=== PATIENT | female | born 1945 | race Caucasian/White ===

== ENCOUNTER 2024-08-08 11:26 | Inpatient (IN) | payer OTHER ==
--- OUTSIDE RECORDS SUMMARY | 2024-08-08 11:32 | XMS REPORT | Clinical Summary ---
Author Name Unknown Organization [facility] Address [address] [place] [address] Care Team Providers Care Crtts Name Role Phone Adeel Hogue MD Unavailable [phone] Eliazar Monroy MD Primary Care Provider Ninfa Mitchell DPM Unavailable William Oseguera MD Unavailable [phone] Maggie Ramos GRAPHIC ART DESIGNER Unavailable Kayce Albert MD Unavailable Augustin Oleary MD Unavailable Joshua Almanzar MD Unavailable Allergies Active Allergy Reactions Criticality Noted Date Comments Codeine Hcl GI Intolerance 04/19/2016 Medications * This document contains information received from the source organization and may not represent a complete record from that organization. lisinopril-hydr ochlorothiazide (PRINZIDE,ZESTO RETIC) 20-25 mg per tablet Take 1 tablet by mouth daily. Active levothyroxine (SYNTHROID, LEVOTHROID) 137 mcg tablet Take 1 tablet (137 mcg) by mouth daily. Active isosorbide mononitrate (IMDUR) 30 mg 24 hr tablet Take 1 tablet (30 mg) by mouth daily. Active multivitamin capsule Take 1 capsule by mouth daily. Active famotidine (PEPCID) 20 mg tablet Take 1 tablet (20 mg) by mouth twice daily. 12/28/19 22 Active rOPINIRole (REQUIP) 2 mg tablet Take 1 tablet (2 mg) by mouth nightly as needed. 10/15/19 23 Active rosuvastatin (Crestor) 10 mg tabletIndicatio ns:Dyslipidemia ,Coronary arteriosclerosi s, not otherwise specified Take 1 tablet (10 mg) by mouth at bedtime. 30 tablet 3 12/31/19 23 Active metoprolol tartrate (LOPRESSOR) 50 mg tabletIndicatio ns:Hypertension Take 0.5 tablets (25 mg) by mouth twice daily. 04/26/20 24 Active aspirin 81 mg EC tabletIndicatio ns:Coronary arteriosclerosi s, not otherwise specified Take 1 tablet (81 mg) by mouth daily. 04/26/20 24 Active gabapentin (NEURONTIN) 800 mg tabletIndicatio ns:Chronic pain Take 1 tablet (800 mg) by mouth 3 (three) times a day. 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 90 tablet 2 09/01/19 17 024 Discontinued baclofen (LIORESAL) 10 mg tabletIndicatio ns:Chronic pain TAKE 1 TABLET BY MOUTH EVERY 12 HOURS 180 tablet 08/02/19 20 024 Discontinued( erapy completed) xyloxylin oral suspension (AMB-CMPD)Indic ations:Diffuse large B-cell lymphoma, not otherwise specified Swish and spit 10 mL every 6 (six) hours as needed for mouth pain. 480 mL 2 10/01/19 22 024 Discontinued(Th erapy completed) gabapentin (NEURONTIN) 800 mg tabletIndicatio ns:Chronic pain Take 1 tablet (800 mg) by mouth 3 (three) times a day. 90 tablet 5 05/12/20 23 024 Discontinued(Re order) omeprazole (PriLOSEC) 40 MG capsule Take 1 capsule (40 mg) by mouth. 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 60 tablet 6 10/24/19 24 024 Discontinued gabapentin (NEURONTIN) 800 mg tabletIndicatio ns:Chronic pain Take 1 tablet (800 mg) by mouth 3 (three) times a day. 90 tablet 5 11/10/19 24 025 Discontinued(Re order) Active Problems Problem Noted Date Diagnosed Date Preoperative cardiovascular examination 10/24/19 Coronary arteriosclerosis 04/05/2023 Assessment & Plan (04/26/2024 1:14 PM BLASTING ENTRYMAN): Patient has history of remote MS and underwent PCI in 2003 (details unknown). She had an echocardiogram 12/30/2022 that revealed normal LVEF 55% with normal RV size/function. The echocardiogram was previously reviewed with and was felt she had a very focal area of thinning and hypokinesis in the mid inferoseptum. The thinning indicates chronicity. The patient denies chest pain or CHF symptomatology. She remains active and performs her ADLs independently. Admits she was not using Crestor for the past few months because she was having some muscle spasms that go away when she drinks pickle juice (states she is scheduled for routine blood work with her local PCP in about 2 weeks).. She has not been using aspirin 81 mg daily because she takes ibuprofen regularly. Recommend aspirin 81 mg daily. Advised patient to not use ibuprofen on a regular basis. Okay to use Tylenol as directed on the label for muscle aches. Will resume Crestor 10 mg daily. Plan to check lipids and LFTs in about 8-12 weeks (patient will go to local lab) and I will call her with the results. Otherwise, plan to follow-up in the clinic in 1 year with previsit lipid panel and CMP. Assessment & Plan (04/10/2023 10:07 AM BLASTING ENTRYMAN): History of MS s/p PCI in 2003. Echo reports LVEF of 55% with WMA. Discussed Echo with Dr. Oleary regarding WMA. Her LVEF is indeed preserved but she has a very focal area of thinning and hypokinesis in the mid inferoseptum. 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 However, the area of thinning does indicate chronicity. Will continue current cardiac meds. She can be considered low risk for low risk procedure as she remains asymptomatic, has good functional capacity, and is on guideline therapy. However, if she needs to go for a moderate or higher risk surgery, recommend NMST for further evaluation. Dyslipidemia 04/05/2023 Assessment & Plan (04/26/2024 1:21 PM BLASTING ENTRYMAN): She had a lipid panel 11/24/2023 which showed TC 200, TRG 263, HDL 37 and LDL 110. He has history of prior MS with PCI in 2003. Has not been taking Crestor in the past few months as she thought it was contributing to her muscle spasms, however, continues to have muscle spasms despite being off of statin therapy. Goal LDL should be <70 Patient is agreeable to restart Crestor 10 mg daily. Will plan to check lipids and LFTs in about 8-12 weeks. Otherwise, we will plan to follow-up in 1 year with a previsit lipid panel. Assessment & Plan (04/07/2023 5:06 PM BLASTING ENTRYMAN): Latest Reference Range & Units 01/27/23 09:55 Chol <=199 mg/dL 124 Trig <=149 mg/dL 165 (H) HDL Cholesterol >=40 mg/dL 44 LDL <=100 mg/dL 47 Very Low Density Lipoprotein mg/dL 33 (H): Data is abnormally high Controlled on current medication of Crestor 10mg daily. Continue same. 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 BP was 139/70 in our clinic today. Patient states she does not check her BP at home on a regular basis. Patient was encouraged to monitor her daily BP and notify our clinic or her local PCP if readings are consistently >130/80 Patient will continue with Lisinopril-HCTZ 20-12.5 mg daily, Imdur 30 mg daily, and Metoprolol tartrate 25 mg BID. Patient states she is scheduled to have blood work in about 2 weeks through her PCP. I asked her to send us a copy of the results Patient states her local PCP has been monitoring her BP and she has an upcoming appointment to see him in May 2024. Will defer ongoing BP management to her local PCP. Assessment & Plan (04/05/2023 1:18 PM BLASTING ENTRYMAN): Controlled on current medications of lopressor 50mg BID, lisinopril-HCTZ 20-25mg daily. Continue current medications. 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 Encounters Date Type Department Care Team Description 07/01/2024 Telephone Cancer Prevention Center ([facility]) [address] [facility], [address] [place] [address] Elisha Campuzano RN 05/23/2024 9:15 AM BLASTING ENTRYMAN - 05/23/2024 11:59 PM BLASTING ENTRYMAN Hospital Encounter Pain Management Center [facility] [facility], 4th [place] [address] Ivelisse Lilly APRN Sensory neuropathy (Primary Dx); Chronic pain Discharge Disposition: Home 04/26/2024 1:20 PM BLASTING ENTRYMAN Follow-Up Cardiopulmonary Center [address] [facility], 6th [place] [address] Augustin Oleary MD Bailey, Katie, APRN Coronary arteriosclerosis, not otherwise specified (Primary Dx); Hypertension; Dyslipidemia 04/26/2024 Travel 11/24/2023 2:30 PM CDT Follow-Up [place] 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; Spasm; History of antineoplastic chemotherapy 11/24/2023 12:45 PM CDT Ancillary Procedure [facility] [address] [facility], 2nd [place] [address] Maggie Ramos APRN 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 11/24/2023 11:00 AM CDT Ancillary Procedure X-Ray Outpatient Center [address] [place] [address], 7th [place] [address] Maggie Ramos APRN 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 11/24/2023 10:20 AM CDT - 11/24/2023 11:59 PM CDT Hospital Encounter Nuclear Medicine [address] [place] [address], 6th Floor, [place] [address] Maggie Ramos APRN 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 Discharge Disposition: Home 11/24/2023 9:38 AM CDT - 11/24/2023 10:19 AM CDT Hospital Encounter Diagnostic Laboratory Center [address] [place] [address] Maggie Ramos APRN 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 Discharge Disposition: Home 11/24/2023 Travel 11/10/2023 1:20 PM CDT - 11/10/2023 11:59 PM CDT Hospital Encounter Pain Management Center [address] [place] [address], 4th [place] [address] Joshua Almanzar MD Chronic pain (Primary Dx) Discharge Disposition: Home 10/25/2023 Documentation Cardiopulmonary Center [address] [place] [address] [facility], 6th [place] [address] Estee Jackson RN 10/24/2023 9:30 AM CDT Telemedicine Cardiopulmonary Center [address] [place] [address] [facility], 6th [place] [address] Nini Larson PA-C Hypertension (Primary Dx); 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; Sinus bradycardia; Coronary arteriosclerosis, not otherwise specified; Preoperative cardiovascular examination 10/10/2023 10:00 AM CDT Follow-Up Cardiopulmonary Center [address] [place] [address], 6th [place] [address] Nini Larson PA-C Hypertension (Primary Dx); Dyslipidemia 10/10/2023 Travel after 08/09/2023 Immunizations Name Administration Dates Next Due Moderna SARS-CoV-2 Monovalen t Booster Vaccination (50 mcg/0.25 mL) 08/27/2021,03/16/2021 Moderna SARS-CoV-2 Vaccination 07/11/2020,2020 Surgical History Surgery Date Site/Laterality Comments CHOLECYSTECTOMY 05/22/1969 - 05/21/1970 CORONARY ARTERY BYPASS GRAFT 05/22/2003 - 05/21/2004 APPENDECTOMY 05/22/1969 - 05/21/1970 TONSILLECTOMY 05/22/1952 - 05/21/1953 HYSTERECTOMY 05/22/1986 - 05/21/1987 UPPER GASTROINTESTINAL ENDOSCOPY COLONOSCOPY 05/22/2019 - 05/21/2020 CATARACT EXTRACTION, BILATERAL 07/20/2021 - 08/19/2021 Medical History Medical History Date Comments Hypertension Cardiac arrest 05/12/04 History of placement of sten t for coronary artery disease 05/13/04 stent Hyperlipidemia Nodule in breast 03/2016 removed - per p t module was in right neck and was removed by ENT Gastric reflux Diverticulitis Polyp Abnormal uterine bleeding un related to menstrual cycle 1985 hysterectomy Arthritis Disorder of thyroid gland Malignant lymphoma 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 Urinary tract infection 08/23/2016 Gastroesophageal reflux disease Family History Medical History Relation Name Comments -Gastrointestinal (Esophagus , Liver, Bile Duct, Stomach, Pancreas, Colon, Rectum, Anus Father Diabetes Maternal Grandmother Hypertension Maternal Grandmother Heart failure Mother -Thoracic or Lung Sister Relation Name Status Comments Father Maternal Grandmother Mother Sister Social History Tobacco Use Types Packs/Day Years Used Date Smoking Tobacco: Former Cigarettes 1 40 1 964 - 2004 Passive Smoke Exposure: Past Smokeless Tobacco: Never Tobacco Cessation:Counseling Given: Not Answered Alcohol Use Standard Drinks/Week Comments No 0 (1 standard drink = 0.6 oz pur e alcohol) Comments No Sex and Gender Information Value Date Recorded Sex Assigned at Not on file Legal Sex Female 2:12 PM BLASTING ENTRYMAN Gender Identity Not on file Sexual Orientation Not on file Obstetrics History Para Term AB IAB SAB Ectopic Multiple Livin g Live Births 2 2 2 2 Date Outcome GA Total Labor Labor/2nd/3rd Weight Sex Type Anes PTL Audra A1 A5 Name Clin Term Term Last Filed Vital Signs Vital Sign Reading Time Taken Comments Blood Pressure 139/70 04/26/2024 12:34 PM BLASTING ENTRYMAN Pulse 70 04/26/2024 12:34 PM BLASTING ENTRYMAN Temperature 36.7 °C (98.1 °F) 04/26/2024 12:[address] Respiratory Rate 18 04/26/2024 12:34 PM BLASTING ENTRYMAN Oxygen Saturation 96% 04/26/2024 12:34 PM BLASTING ENTRYMAN Inhaled Oxygen Concentration - - Weight 85.9 kg (189 lb 4.2 oz) 04/26/2024 12:34 PM BLASTING ENTRYMAN Height 156 cm (5' 1.42") 11/24/2023 10:31 AM CDT Body Mass Index 35.28 11/24/2023 10:31 AM CDT Plan of Treatment Upcoming Encounters Date Type Department Care Team (Late st Contact Info) Description 11/29/2024 9:20 AM CDT Appointment Pain Management Center [address] [facility], 4th [place] [address] Ivelisse Lilly APRN [address] [place] [address] [email or web address] 11/29/2024 10:45 AM CDT Appointment Diagnostic Laboratory Center [address] [place] [address] Liliane Chávez, GRAPHIC ART DESIGNER [address] [place] [address] [email or web address] 11/29/[email or web address] 12:00 PM CDT Ancillary Procedure Diagnostic Center [address] [facility], 2nd Floor [place] [address] Liliane Chávez, GRAPHIC ART DESIGNER [address] [place] [address] [email or web address] 11/29/[email or web address] 1:20 PM CDT Appointment Breast Imaging [facility], 5th [place] [address] Liliane Chávez, GRAPHIC ART DESIGNER [address] [place] [address] [email or web address] 11/[email or web address]/2024 2:00 PM CDT Follow-Up Cancer Prevention Center - Survivorship, Lymphoma [address] [place] [address], 8th [place] [address] Liliane Chávez, GRAPHIC ART DESIGNER [address] [place] [address] [email or web address] 05/02/2025 8:15 AM BLASTING ENTRYMAN Appointment Diagnostic Laboratory Center [address] [place] [address] Afua Vallejo, GRAPHIC ART DESIGNER [address] [place] [address] [email or web address] 05/02/2025 9:00 AM BLASTING ENTRYMAN Follow-Up Cardiopulmonary Center [address] [place] [address], 6th [place] [address] Augustin Oleary MD [address] [place] [address] [email or web address] Maintenance Due Date Last Done Comments Pneumococcal Vaccine: 50+ Ye ars (1 of 2 - PCV) 1964 COVID-19 Vaccine (3 - Modern a risk series) 09/24/2021 08/27/2021, 03/16/2021, 07/11/2020, Additional history exists Influenza Vaccine (#1) 2024 Medical Devices Implanted Type Area Automation Technician Device Identifier Shelf Expiration Date Model / Serial / Lot Stent Stent Description:04/2004 Procedures Procedure Name Priority Date/Time Associated Diagnosis Comments MAMMO DIGITAL SCREENING BILATERAL W PAUL Routine 11/24/2023 12:00 PM CDT 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 DEXA BONE MINERAL DENSITY BOTH HIPS AND SPINE Routine 11/24/2023 11:07 AM CDT 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 XR CHEST 2 VW Routine 11/24/2023 10:13 AM CDT 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 .CBC Routine 11/24/2023 9:45 AM CDT 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 LIPID PANEL Routine 11/24/2023 9:45 AM CDT 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 HEMOGLOBIN A1C Routine 11/24/2023 9:45 AM CDT 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 ELECTROLYTE PANEL Routine 11/24/2023 9:4 5 AM CDT 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 FREE T3 Routine 11/24/2023 9:45 AM CDT 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 MAGNESIUM LEVEL Routine 11/24/2023 9:45 AM CDT 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 CALCIUM LEVEL Routine 11/24/2023 9:45 AM CDT 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 GLUCOSE, RANDOM Routine 11/24/2023 9:45 AM CDT 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 CREATININE Routine 11/24/2023 9:45 AM CDT 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 BLOOD UREA NITROGEN Routine 11/24/2023 9 :45 AM CDT 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 URIC ACID Routine 11/24/2023 9:45 AM CDT 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 FRACTIONATED BILIRUBIN Routine 9:45 AM CDT 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 LACTATE DEHYDROGENASE Routine 11/24/2023 9:45 AM CDT 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 ALKALINE PHOSPHATASE Routine 11/24/2023 9:45 AM CDT 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 ALANINE AMINOTRANSFERASE Routine 9:45 AM CDT 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 ASPARTATE AMINOTRANSFERASE Routine 11/24/2023 9:45 AM CDT 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 PHOSPHORUS LEVEL Routine 11/24/2023 9:45 AM CDT 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 ALBUMIN LEVEL Routine 11/24/2023 9:45 AM CDT 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 TOTAL PROTEIN Routine 11/24/2023 9:45 AM CDT 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 VITAMIN D 25 HYDROXY LEVEL Routine 11/24/2023 9:45 AM CDT 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 FREE THYROXINE Routine 11/24/2023 9:45 AM CDT 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 Follow-up mammogram in 1 year is recommended. I personally reviewed these image(s) along with the resident's/fellow's interpretations, certify that if a procedure was performed I was physically present, and agree with the final report. BI-RADS Category 2: Benign Finding(s) Narrative 11/24/2023 3:37 PM CDT CLINICAL INDICATION: Patient is a 78 year old female and is seen for screening. MAMMO DIGITAL SCREENING BILATERAL W PAUL Digital Mammogram evaluated with Computer Aided Detection (CAD). COMPARISON: The present examination has been compared to prior imaging studies performed at an outside location on 05/06/2011, and at [facility] on 04/20/2016. FINDINGS: The breasts are almost entirely fatty. 1: There are eggshell or rim calcifications in both breasts. 2: There are large rodlike calcifications in both breasts. Tomosynthesis performed in CC and MLO projections. Procedure Note Sumit Bansal MD - 11/24/2023 CLINICAL INDICATION: Patient is a 78 year old female and is seen for screening. MAMMO DIGITAL SCREENING BILATERAL W APUL Digital Mammogram evaluated with Computer Aided Detection (CAD). COMPARISON: The present examination has been compared to prior imaging studiesperformed at an outside location on 05/06/2011, and at [facility] on 04/20/2016. FINDINGS: The breasts are almost entirely fatty. 1: There are eggshell or rim calcifications in both breasts. 2: There are large rodlike calcifications in both breasts. Tomosynthesis performed in CC and MLO projections. IMPRESSION: There is no mammographic evidence of malignancy. Follow-up mammogram in 1 year is recommended. I personally reviewed these image(s) along with the resident's/fellow's interpretations, certify that if a procedure was performed I wasphysically present, and agree with the final report. BI-RADS Category 2: Benign Finding(s) Maggie Ramos APRN IMG MAMMOGRAPHY ORDER PHILIPPE Final Result * NM Bone Mineral Density Both Hips and Spine (11/24/2023 11:07 AM CDT) Anatomical Region Laterality Modality Spine Nuclear Medicine 11/24/2023 11:1 1 AM CDT Impressions 11/24/2023 11:12 AM CDT Normal bone mineral density. I personally reviewed these image(s) along with the resident's/fellow's interpretations, certify that if a procedure was performed I was physically present, and agree with the final report. Narrative 11/24/2023 11:12 AM CDT FULL RESULT: Examination: Bone Mineral Density (DXA), 11/24/2023 Clinical History: 78-year-old postmenopausal female with lymphoma. Indication: Assessment of bone mineral density.. Comparison: None. Technique: Bone mineral density was obtained using Hologic dual-energy X-ray absorptiometry. Findings: The findings are provided in the below table(s). Bone Density: Region Exam Date BMD T- Z- g/cm2 Score Score AP Spine (L1-L4) 11/24/2023 1.750 6.4 8.9 Femoral Neck (Left) 11/24/2023 1.089 2.2 4.3 Total Hip (Left) 11/24/2023 1.260 2.6 4.5 Femoral Neck (Right) 11/24/2023 1.013 1.5 3.7 Total Hip (Right) 11/24/2023 1.149 1.7 3.6 For postmenopausal women and men age 50 and over, the World Health Organization criteria for BMD interpretation classify patients as: Normal (T-score at or above -1.0), Osteopenia (T-score between -1.0 and -2.5), or Osteoporosis (T-score at or below -2.5). Procedure Note Bia Barajas MD - 11/24/2023 FULL RESULT: Examination: Bone Mineral Density (DXA), 11/24/2023 Clinical History: 78-year-old postmenopausal female with lymphoma. Indication: Assessment of bone mineral density.. Comparison: None. Technique: Bone mineral density was obtained using Hologic ectz-[id number]-zle absorptiometry. Findings: The findings are provided in the below table(s). Bone Density: Region Exam Date BMD T- Z- g/cm2 Score Score AP Spine (L1-L4) 11/24/2023 1.750 6.4 8.9 Femoral Neck (Left) 11/24/2023 1.089 2.2 4.3 Total Hip (Left) 11/24/2023 1.260 2.6 4.5 Femoral Neck (Right) 11/24/2023 1.013 1.5 3.7 Total Hip (Right) 11/24/2023 1.149 1.7 3.6 For postmenopausal women and men age 50 and over, the World Health Organization criteria for BMD interpretation classify patients as: Normal (T-score at or above -1.0), Osteopenia (T-score between -1.0 and -2.5), or Osteoporosis (T-score at or below -2.5). IMPRESSION: Normal bone mineral density. I personally reviewed these image(s) along with the resident's/fellow'sinterpretations, certify that if a procedure was performed I wasphysically present, and agree with the final report. us Maggie Ramos APRN [facility] – [facility] DXA ORDERABLES Fi nal Result * X-ray Chest 2 Views (11/24/2023 10:13 AM CDT) Anatomical Region Laterality Modality Chest Digital Radiogra phy 11/24/2023 10:2 0 AM CDT Impressions 11/24/2023 10:22 AM CDT No acute cardiopulmonary disease, or radiographic evidence of intrathoracic lymphoma. ACTIONABLE ITEMS/RECOMMENDATIONS: None. Narrative 11/24/2023 10:22 AM CDT FULL RESULT: Examination: XR Chest, 2 Views 11/24/2023 10:13 AM. Clinical History: Lymphoma. Indication: Restaging. Comparison: PA and lateral chest, 07/14/2023. Technique: Posteroanterior, lateral and dual-energy chest radiographs, 11/24/2023. Findings: The lungs are clear. No pleural effusion is present. The heart is normal in size with a mildly tortuous aorta. The left hemidiaphragm remains mildly elevated. Degenerative changes are noted in the thoracic spine. Procedure Note Kam White MD - 11/24/2023 FULL RESULT: Examination: XR Chest, 2 Views 11/24/2023 10:13 AM. Clinical History: Lymphoma. Indication: Restaging. Comparison: PA and lateral chest, 07/14/2023. Technique: Posteroanterior, lateral and dual-energy chest radiographs,11/24/2023. Findings: The lungs are clear. No pleural effusion is present. The heart is normalin size with a mildly tortuous aorta. The left hemidiaphragm remainsmildly elevated. Degenerative changes are noted in the thoracic spine. IMPRESSION: No acute cardiopulmonary disease, or radiographic evidence ofintrathoracic lymphoma. ACTIONABLE ITEMS/RECOMMENDATIONS: None. us Maggie Ramos APRN IMG DIAGNOSTIC IMAGIN G ORDERABLES Final Result * Glucose, Random (11/24/2023 9:45 AM CDT) Glucose Random 105 70 - 199 mg/dL 11/24/2023 10:30 AM CDT [facility] Blood Peripheral blood specimen / Unknown Venipuncture / Unknown 11/24/2023 9:45 AM CDT 11/24/2023 9:54 AM CDT Narrative [facility] - 11/24/2023 10:30 AM CDT Effective 12/16/15, the glucose reference intervals have been updated based on [employer] guidelines (Standards of Medical Care in Diabetes 2016. Diabetes Care 2016; 39: S13-S22). Fasting blood glucose: Normal: 70-99 mg/dL Impaired fasting glucose (increased risk for diabetes or pre-diabetes): 100-125 mg/dL Diabetes mellitus: >/=126 mg/dL Random blood glucose: Normal: 70-199 mg/dL Note: Random glucose >100 mg/dL is associated with increased risk for diabetes Maggie Ramos APRN LAB BLOOD ORDERABLES Final Result [facility] [address] [place] [address] * (ABNORMAL) .CBC (11/24/2023 9:45 AM T) [facility] White Blood Cell 4.7 4.1 - 10.5 K/uL 11/24/2023 10:01 AM [facility] Red Blood Cell 4.11 3.99 - 5.46 M/uL 11/24/2023 10:01 AM [facility] Hemoglobin 12.5 12.2 - 15.3 g/dL 11/24/2023 10:01 AM [facility] Hematocrit 37.7 36.4 - 46.8 % 11/24/2023 10:01 AM [facility] Mean Cell Volume 92 82 - 99 fL 11/24/2023 10:01 AM [facility] Mean Cell Hemoglobin 30.4 26.6 - 33.2 pg 11/24/2023 10:01 AM [facility] Mean Cell Hemoglobin Concentration 33.2 31.1 - 35.2 g/dL 11/24/2023 10:01 AM [facility] RDW-SD 42.3 37.5 - 49.7 fL 11/24/2023 10:01 AM [facility] Red Cell Diameter Width 12.8 11.6 - 15.5 % 11/24/2023 10:01 AM [facility] Platelet 153(L) 160 - 397 K/uL 11/24/2023 10:01 AM [facility] Mean Platelet Volume 11.4 9.1 - 12.6 fL 11/24/2023 10:01 AM [facility] INRBC 0.0 0.0 - 0.1 /100 WBC 11/24/2023 10:01 AM [facility] Comment: The INRBC (instrument NRBC) value reflects the enumeration of nucleated red blood cells contained in a 200uL sample of whole blood analyzed by the instrument. This value may differ from the NRBC value reported in a manual differential, which is based on a 100 cell differential. Neutrophil % 42.8(L) 43.2 - 72.7 % 11/24/2023 10:01 AM [facility] Lymphocyte % 40.6 16.8 - 46.2 % 11/24/2023 10:01 AM [facility] Monocyte % 11.5 5.1 - 12.5 % 11/24/2023 10:01 AM [facility] Eosinophil % 3.8 0.4 - 6.3 % 11/24/2023 10:01 AM [facility] Basophil % 1.1 0.2 - 1.4 % 11/24/2023 10:01 AM [facility] IGRE % 0.2 0.1 - 1.5 % 11/24/2023 10:01 AM [facility] Comment:The IGRE% includes M etamyelocytes, Myelocytes and Promyelocytes. Neutrophil Abs 2.01 1.95 - 7.25 K/uL 11/24/2023 10:01 AM [facility] Lymphocyte Abs 1.91 1.01 - 3.24 K/uL 11/24/2023 10:01 AM [facility] Monocyte Abs 0.54 0.24 - 0.85 K/uL 11/24/2023 10:01 AM [facility] Eosinophil Abs 0.18 0.02 - 0.50 K/uL 11/24/2023 10:01 AM [facility] Basophil Abs 0.05 0.02 - 0.09 K/uL 11/24/2023 10:01 AM [facility] IG Abs 0.01 0.01 - 0.12 K/uL 11/24/2023 10:01 AM CDT [facility] Blood Peripheral blood specimen / Unknown Venipuncture / Unknown 11/24/2023 9:45 AM CDT 11/24/2023 9:52 AM CDT [facility] Inessakhadra [facility] LAB BLOOD ORDERABLES Final Result Performing Organization Address City/[facility]/ZIP Co de Phone Number [facility] [address] [place] [address]. [address] [place] [address] * Fractionated Bilirubin (11/24/2023 9:45 AM CDT) Bilirubin Direct <0.2 0.0 - 0.3 mg/dL 11/24/2023 10:30 AM T [facility] Comment:Indocyanine Green (I CG) may cause falsely elevated bilirubin results. Total and direct bilirubin must not be measured from samples containing indocyanine green. Bilirubin Indirect 2023 10:30 AM [facility] Comment:Unable to calculate Indirect Bilirubin result due to some parameters are outside reportable range Bilirubin Total 0.4 0.0 - 1.2 mg/dL 11/24/2023 10:30 AM T [facility] Comment:Indocyanine Green (I CG) may cause falsely elevated bilirubin results. Total and direct bilirubin must not be measured from samples containing indocyanine green. False elevation of total bilirubin can be seen in patients with IgG concentrations above 28 g/L. Blood Peripheral blood specimen / Unknown Venipuncture / Unknown 11/24/2023 9:45 AM CDT 11/24/2023 9:54 AM CDT Maggie Ramos [facility] LAB BLOOD ORDERABLES Final Result [facility] [address] [place] [address]. [address] [place] [address] * (ABNORMAL) Vitamin D 25OH (11/24/2023 9:45 AM CDT) Pathologist [facility] Vitamin D 25 OH 24(L) 30 - 100 ng/mL 11/24/2023 11:03 AM CDT [facility] Blood Peripheral blood specimen / Unknown Venipuncture / Unknown 11/24/2023 9:45 AM CDT 11/24/2023 9:54 AM CDT Narrative [facility] - 11/24/2023 11:03 AM CDT Reference Range: Deficiency: <=20 ng/mL Insufficiency: 21-29 ng/mL Sufficiency: 30-100 ng/mL Potential toxicity: >100 ng/mL Maggie Ramos GRAPHIC ART DESIGNER LAB BLOOD ORDERABLES Final Result [facility] Unless otherwise noted, all lab tests performed by: Division of Pathology and Laboratory Medicine [address] [place] [id number] * (ABNORMAL) Uric Acid (11/24/2023 9:45 AM CDT) Uric Acid 7.5(H) 2.4 - 5.7 mg/dL 11/24/2023 10:30 AM CDT [facility] Blood Peripheral blood specimen / Unknown Venipuncture / Unknown 11/24/2023 9:45 AM CDT 11/24/2023 9:54 AM CDT Maggie Ramos GRAPHIC ART DESIGNER LAB BLOOD ORDERABLES Final Result Performing Organization Address City/[facility]/ZIP Co de Phone Number [address] [place] [address] * BUN (11/24/2023 9:45 AM CDT) BUN 18 6 - 23 mg/dL 11/24/2023 10:30 AM CDT [facility] Blood Peripheral blood specimen / Unknown Venipuncture / Unknown 11/24/2023 9:45 AM CDT 11/24/2023 9:54 AM CDT Maggie Ramos GRAPHIC ART DESIGNER LAB BLOOD ORDERABLES Final Result [address] [place] [address] * Free T3 (11/24/2023 9:45 AM CDT) Free T3 2.5 2.0 - 4.4 pg/mL 11/24/2023 11:03 AM CDT [facility] Blood Peripheral blood specimen / Unknown Venipuncture / Unknown 11/24/2023 9:45 AM CDT 11/24/2023 9:54 AM CDT Maggie Ramos GRAPHIC ART DESIGNER LAB BLOOD ORDERABLES Final Result [facility] Unless otherwise noted, all lab tests performed by: Division of Pathology and Laboratory Medicine [address] [place] [id number] * Alanine Aminotransferase (11/24/2023 9:45 AM CDT) ALT 24 <=33 U/L 11/24/2023 10: 30 AM CDT [facility] Blood Peripheral blood specimen / Unknown Venipuncture / Unknown 11/24/2023 9:45 AM CDT 11/24/2023 9:54 AM CDT Maggie Ramos APRN LAB BLOOD ORDERABLES Final Result [address] [place] [address] * Aspartate Aminotransferase (11/24/2023 9:45 AM CDT) AST 29 <=32 U/L 11/24/2023 10: 30 AM CDT [facility] Blood Peripheral blood specimen / Unknown Venipuncture / Unknown 11/24/2023 9:45 AM CDT 11/24/2023 9:54 AM CDT Maggie Ramos GRAPHIC ART DESIGNER LAB BLOOD ORDERABLES Final Result [address] [place] [address] * TSH (11/24/2023 9:45 AM CDT) Thyroid Stimulating Hormone 0.65 0.27 - 4.20 mcunit/mL 11/24/2023 10:42 AM CDT [facility] Blood Peripheral blood specimen / Unknown Venipuncture / Unknown 11/24/2023 9:45 AM CDT 11/24/2023 9:54 AM CDT Maggie Ramos GRAPHIC ART DESIGNER LAB BLOOD ORDERABLES Final Result [address] [place] [address] * Free T4 (11/24/2023 9:45 AM CDT) T4 (Thyroxine) Free 1.40 0.93 - 1.70 ng/dL 11/24/2023 10:42 AM CDT [facility] Blood Peripheral blood specimen / Unknown Venipuncture / Unknown 11/24/2023 9:45 AM CDT 11/24/2023 9:54 AM CDT Maggie Ramos APRN LAB BLOOD ORDERABLES Final Result [address] [place] [address] * Total Protein (11/24/2023 9:45 AM CDT) Tot Protein 7.5 6.4 - 8.3 gm/dL 11/24/2023 10:30 AM CDT [facility] Blood Peripheral blood specimen / Unknown Venipuncture / Unknown 11/24/2023 9:45 AM CDT 11/24/2023 9:54 AM CDT Narrative [facility] - 11/24/2023 10:30 AM CDT Reference range established based on adult population Maggie Ramos GRAPHIC ART DESIGNER LAB BLOOD ORDERABLES Final Result Performing Organization Address City/[facility]/ZIP Co de Phone Number [address] [place] [address] * Phosphorus Level (11/24/2023 9:45 AM CDT) Phosphorus Level 3.7 2.5 - 4.5 mg/dL 11/24/2023 10:30 AM CDT [facility] Blood Peripheral blood specimen / Unknown Venipuncture / Unknown 11/24/2023 9:45 AM CDT 11/24/2023 9:54 AM CDT Maggie Ramos APRN LAB BLOOD ORDERABLES Final Result Performing Organization Address [facility] Co de Phone Number [address] [place] [address] * Alkaline Phosphatase (11/24/2023 9:45 AM CDT) Alkaline Phosphatase 75 35 - 104 U/L 11/24/2023 10:30 AM CDT [facility] Blood Peripheral blood specimen / Unknown Venipuncture / Unknown 11/24/2023 9:45 AM CDT 11/24/2023 9:54 AM CDT Maggie Ramos APRN LAB BLOOD ORDERABLES Final Result Performing Organization Address City/[facility] Co de Phone Number [address] [place] [address] * Magnesium Level (11/24/2023 9:45 AM CDT) Magnesium Level 1.9 1.6 - 2.6 mg/dL 11/24/2023 10:30 AM CDT [facility] Blood Peripheral blood specimen / Unknown Venipuncture / Unknown 11/24/2023 9:45 AM CDT 11/24/2023 9:54 AM CDT Maggie Ramos GRAPHIC ART DESIGNER LAB BLOOD ORDERABLES Final Result Performing Organization Address City/[facility]/ZIP Co de Phone Number [address] [place] [address] * (ABNORMAL) LDH (11/24/2023 9:45 AM CDT) Pathologist [facility] LDH 242(H) 135 - 214 U/L 11/24/2023 10:25 AM CDT [facility] Blood Peripheral blood specimen / Unknown Venipuncture / Unknown 11/24/2023 9:45 AM CDT 11/24/2023 9:54 AM CDT [facility] - 11/24/2023 10:25 AM CDT Results greater than 1651 U/L may not be reliable due to matrix effect with extended dilution as it exceeds the corporate intern's recommended limit. Caution should be exercised when interpreting such values and done in conjunction with clinical context. Maggie Ramos APRN LAB BLOOD ORDERABLES Final Result Performing Organization Address [facility] de Phone Number [address] [place] [address] * (ABNORMAL) Hemoglobin A1c (11/24/2023 9:45 AM CDT) Pathologist [facility] Hemoglobin A1c 5.8(H) 4.3 - 5.6 % 11/24/2023 10:27 AM CDT [facility] Blood Peripheral blood specimen / Unknown Venipuncture / Unknown 11/24/2023 9:45 AM CDT 11/24/2023 9:53 AM CDT [facility] - 11/24/2023 10:27 AM CDT HbA1c values >=6.5% are diagnostic of diabetes mellitus. Diagnosis should be confirmed by repeat testing. Therapeutic Action suggested: >8.0% HbA1c; Goal of therapy: <7.0% HbA1c Wellcoinbecky Ramos APRN LAB BLOOD ORDERABLES Final Result Performing Organization Address City/[facility]/ZIP Co de Phone Number [facility] Unless otherwise noted, all lab tests performed by: Division of Pathology and Laboratory Medicine [address] [place] [id number] * (ABNORMAL) Creatinine (11/24/2023 9:45 AM CDT) Creatinine 1.05(H) 0.51 - 0.95 mg/dL 11/24/2023 10:30 AM CDT [facility] eGFR 55(L) >=60 mL/min/1. 73 sq. m 11/24/2023 10:30 AM CDT [facility] Comment: The eGFRcr is calculated with the 2020 CKD-EPI creatinine equation using creatinine, patient's age, and sex for adults 18 years of age and older. Other factors, especially muscle mass, may affect accuracy and need to be considered. According to the Kidney Disease: Improving Global Outcomes (KDIGO) CKD Work Group 2012 Clinical Practice Guideline, chronic kidney disease (CKD) is defined as the abnormalities of kidney structure or function, present for more than 3 months, with implications for health. CKD should be classified by cause, GFR category, and albuminuria category. KDIGO guidelines provide the following GFR categories. Stage / Description / GFR mL/min/1.73 m2: G1* / Normal or high / >= 90 G2* / Mildly decreased / 60-89 G3a / Mildly to moderately decreased / 45-59 G3b / Moderately to severely decreased / 30-44 G4 / Severely decreased / 15-29 G5 / Kidney failure / <15 *In the absence of evidence of kidney damage, neither G1 nor G2 fulfill criteria for CKD. Blood Peripheral blood specimen / Unknown Venipuncture / Unknown 11/24/2023 9:45 AM CDT 11/24/2023 9:54 AM CDT Maggie Ramos APRN LAB BLOOD ORDERABLES Final Result [facility] [address] [place] [address] * Calcium Level (11/24/2023 9:45 AM CDT) Calcium Level Total 10.1 8.2 - 10.2 mg/dL 11/24/2023 10:30 AM CDT [facility] Blood Peripheral blood specimen / Unknown Venipuncture / Unknown 11/24/2023 9:45 AM CDT 11/24/2023 9:54 AM CDT Zaidroscoebecky Inessakhadra GRAPHIC ART DESIGNER LAB BLOOD ORDERABLES Final Result Performing Organization Address [facility] Co de Phone Number [address] [place] [address] * Albumin Level (11/24/2023 9:45 AM CDT) Albumin Level 4.2 3.5 - 5.2 gm/dL 11/24/2023 10:30 AM T [facility] Blood Peripheral blood specimen / Unknown Venipuncture / Unknown 11/24/2023 9:45 AM CDT 11/24/2023 9:54 AM CDT Zaidrodolfocorinne Inessakhadra GRAPHIC ART DESIGNER LAB BLOOD ORDERABLES Final Result Performing Organization Address [facility] Phone Number [address] [place] [address] * (ABNORMAL) Lipid Panel (11/24/2023 9:45 AM CDT) Cholesterol Total 200(H) <=199 mg/dL 11/24/2023 10:30 AM [facility] Comment: ATP III Classification of Total Cholesterol - Primary Target of Therapy (in mg/dL): <200 Desirable 200-239 Borderline high >=240 High Triglyceride 263(H) <=149 mg/dL 11/24/2023 10:30 AM [facility] Comment: ATP III Classification of Serum Triglycerides Primary Target of Therapy (in mg/dL): <150 Normal 150-199 Borderline high 200-499 High >=500 Very high Non-fasting triglycerides >200 mg/dL may be followed up with a fasting Lipid Panel. Calculated LDL-C may be falsely decreased when non-fasting triglycerides >200 mg/dL. HDL Cholesterol 37(L) >=40 mg/dL 11/24/2023 10:30 AM [facility] LDL Cholesterol 110(H) <=100 mg/dL 11/24/2023 10:30 AM [facility] Comment: ATP III Classification of LDL Cholesterol Primary Target of Therapy (in mg/dL): <100 Optimal 100-129 Near optimal/above optimal 130-159 Borderline high 160-189 High >=190 Very high Very Low Density Lipoprotein 53 mg/dL 11/24/2023 10:30 AM T [facility] Is patient fasting? Yes 11/23 10:30 AM T [facility] Blood Peripheral blood specimen / Unknown Venipuncture / Unknown 11/24/2023 9:45 AM CDT 11/24/2023 9:54 AM CDT Maggie Ramos GRAPHIC ART DESIGNER LAB BLOOD ORDERABLES Final Result Performing Organization Address [facility] de Phone Number [address] [place] [address] * Electrolyte Panel (11/24/2023 9:45 AM CDT) Pathologist [facility] Sodium Level 140 136 - 145 mmol/L 11/24/2023 10:30 AM T [facility] Potassium Level 4.3 3.4 - 4.5 mmol/L 11/24/2023 10:30 AM [facility] Chloride 102 98 - 107 mmol/L 11/24/2023 10:30 AM T [facility] CO2 28 22 - 29 mmol/L 11/24/2023 10:30 AM [facility] Anion Gap 10 4 - 14 mmol/L 11/24/2023 10:30 AM T [facility] Blood Peripheral blood specimen / Unknown Venipuncture / Unknown 11/24/2023 9:45 AM CDT 11/24/2023 9:54 AM CDT Maggie Ramos APRN LAB BLOOD ORDERABLES Final Result Performing Organization Address [facility] de Phone Number [address] [place] [address] after 08/09/2023 Insurance MEDICARE PART A AND B [facility] MEDICARE PART A AND B MEDICARE PART A AND B [facility] [place] [address] Advance Directives * Full Code (Latest Code Status on File) Date Activated Date Inactivated Comments 10/10/2016 4:06 PM 10/15/2016 5:44 PM * Full Code Date Activated Date Inactivated Comments 09/19/2016 8:39 PM 09/25/2016 1:03 PM * Full Code Date Activated Date Inactivated Comments 08/29/2016 3:35 PM 09/03/2016 3:00 PM * Full Code Date Activated Date Inactivated Comments 08/19/2016 4:08 AM 08/19/2016 3:52 PM * Full Code Date Activated Date Inactivated Comments 08/08/2016 6:22 PM 08/14/2016 12:43 PM Care Teams Crtts Relationship Specialty Start Date End Date Adeel Hogue MD [address] [place] [phone] [email or web address] PCP - External Primary Care Provider Internal Medicine 04/19/16 Eliazar Monroy MD [address] [place] [phone] [email or web address] PCP - General Lymphoma and Myeloma 06/04/18 Ninfa Mitchell DPM [address] [place] [phone] [email or web address]. [facility] Consulting Physician Orthopedic Surgery 01/04/17 William Oseguera MD [address] [place] [phone] [email or web address] .[email or web address] Consulting Physician Cardiology 04/21/16 Maggie Ramos APRN [address] [place] [phone] [email or web address] Nurse Practitioner Lymphoma and Myeloma 09/30/22 Kayce Albert MD [address] [place] [phone] [email or web address]. [facility] Consulting Physician Infectious Diseases 10/19/16 Augustin Oleary MD [address] [place] [phone] [email or web address]. [facility] Consulting Physician Cardiology 12/30/22 Joshua Almanzar MD [address] [place] [phone] [email or web address] Consulting Physician Pain Management 08/02/16
[2024-08-08] MEDS ORDERED: GUAIFENESIN/DM 5 ML UCUP PO PRN (11:56)
[2024-08-08 12:31] LABS: Absolute Lymphocytes (CBC) 1.9 K/uL (0.7-4.9); Absolute Monocytes 0.5 K/uL (0.1-1.3); Absolute Neutrophil 2.1 K/uL (1.8-8.0); Eosinophils % 0.7 % (0-4.4); Hematocrit 39.9 % (36.0-45.0); Hemoglobin 13.8 g/dL (12.0-15.0); Lymphocytes % 41.9 % (15.3-44.8); MCH 30.1 pg (27.0-35.0); MCHC 34.7 g/dL (32.0-36.0); MCV 86.7 fL (80-100); Monocytes % 10.5 % (3.3-12.3); Neutrophils % 45.9 % (41.7-73.7); Nucleated Red Blood Cells % 0.1 % (0-0); Platelets 158 thou/uL (152-406); Red Cell Distribution Width 13.3 % (12.1-15.2)
--- NOTE | 2024-08-08 12:36 | RAD REPORT ---
EXAMINATION: TWO VIEW CHEST XR CLINICAL INDICATION: Female, 78 years old. [facility] MAIN pneumonia TECHNIQUE: 2 view radiographs of the chest were performed. COMPARISON: 08/06/2024 FINDINGS: The lungs are well inflated and clear. No pneumothorax or sizable effusion. The heart is normal in si ze. Mediastinal contours are unremarkable. IMPRESSION: No acute or significant abnormalities.
[2024-08-08 12:57] LABS: Albumin 3.8 g/dL (3.4-5.0); Anion Gap 8.3 mEq/L (5.0-15.0); Bilirubin Total 0.8 mg/dL (0.2-1.0); Magnesium 2.1 mg/dL (1.6-2.4); Potassium 4.3 mEq/L (3.5-5.1); Protein, Total 7.8 g/dL (6.4-8.2)
[2024-08-08] MEDS: ALBUTEROL 2.5 MG/3 ML NEB SOL NEB SCH (13:36)
[2024-08-08] MEDS: CEFTRIAXONE 1,000 MG in NA CHLORIDE 0.9% 50 ML IVPB SCH (13:39)
[2024-08-08] MEDS: METOPROLOL TAR 25 MG TAB PO SCH (13:39)
[2024-08-08] MEDS: AZITHROMYCIN IV 500 MG in NA CHLORIDE 0.9% 250 ML IVPB ONE (14:23)
[2024-08-08] MEDS: AMLODIPINE 5 MG TAB PO ONE (17:34)
[2024-08-08] MEDS: ENOXAPARIN 40 MG/0.4 ML SQ SCH (17:34)
[2024-08-08] MEDS: AMLODIPINE 5 MG TAB PO SCH (18:55)
[2024-08-08] MEDS: GABAPENTIN 300 MG CAP PO SCH (21:11)
[2024-08-08] MEDS: FAMOTIDINE 20 MG TAB PO SCH (21:12)
[2024-08-09] MEDS: LEVOTHYROXINE SOD 0.125 MG TAB PO SCH (05:54)
[2024-08-09] MEDS: lisinopriL 10 MG TAB PO SCH (07:43)
[2024-08-09] MEDS: ISOSORBIDE MONO SR 30 MG TAB PO SCH (07:44)
--- NOTE | 2024-08-09 09:11 | RAD REPORT ---
EXAMINATION: CT CHEST WITHOUT CONTRAST CLINICAL INDICATION: Female, 78 years old. pneumonia TECHNIQUE: Routine CT scan of the chest without intravenous contrast. One or more of the following do se reduction techniques were used: Automated exposure control, adjustment of the mA and/or kV according to patient size, and/or iterative reconstruction. Unless otherwise specified, incidental fi ndings do not require dedicated imaging follow-up. [id number]. COMPARISON: No prior exam. FINDINGS: LOWER NECK: Visualized thyroid gland and soft tissues are normal. LUNGS AND AIRWAYS: Mild left lower lobe groundglass airspace disease. No consolidation.No suspicious and/or stable pulmonary nodules. PLEURA: No pleural effusions. No pneumothorax. MEDIASTINUM AND LYMPH NODES: No mediastinal mass or fluid collection. Normal size mediastinal, hilar, and axillary lymph nodes. THORACIC AORTA: No thoracic aortic aneurysm. Atherosclerotic changes are present. PULMONARY ARTERIES: Caliber is within normal limits. Unable to evaluate for pulmonary emboli due to e ither protocol or lack of contrast. HEART: Normal heart size. Mild coronary artery calcifications.No significant pericardial effusion. OSSEOUS STRUCTURES AND CHEST WALL: Multilevel degenerative changes. No acute fracture. UPPER ABDOMEN: No acute abnormalities. Hepatic steatosis. IMPRESSION: Mild left lower lobe airspace disease suspicious for pneumonia or pneumonitis. No irina consolidation .
--- NOTE | 2024-08-09 09:16 | PN ---
Date of Progress Note: 08/09/2024 Subjective: The patient was seen this morning for followup. She was lying in bed, still has cough, chest congestion, and wheezing, but overall somewhat better today than yesterday. No new complaints or problems reported. Objective: Vital Signs: Reviewed. HEENT: Unremarkable. Lungs: Bilateral scattered wheezing, but much better today than yesterday. Some rales in lower lung field present. Not using accessory muscles of respiration. Heart: Sounds normal. Abdomen: Soft. Bowel sounds normal. No guarding, rigidity, tenderness, distention. Extremities: No leg edema. Impression: 1. Pneumonia. 2. Hypertension. 3. Hyperlipidemia. Plan: The patient's chest x-ray from yesterday was negative for any pneumonia, but clinically I am s uspecting her to have pneumonia, so I have ordered CAT scan of the chest without contrast to be done today. We will continue current antibiotic and we will go ahead and start her on IV Solu-Medrol 40 m g 2 times a day and I will see her tomorrow for followup. Possible discharge over the weekend depend ing on her condition. She denies any prior history of asthma. ROBBIE/MODL Voice ID: [id number] Report ID: [id number]
[2024-08-09] MEDS: cloNIDine HCL 0.1 MG TAB PO PRN (09:40)
[2024-08-09] MEDS: METHYLPREDNISOLONE 40 MG INJ IV SCH (09:40)
[2024-08-09 11:46] VITALS: BMI 32.0
[2024-08-09] MEDS: AZITHROMYCIN IV 250 MG in NA CHLORIDE 0.9% 250 ML IVPB SCH (12:19)
[2024-08-10] MEDS: AMLODIPINE 5 MG TAB PO SCH (08:42)
[2024-08-10] MEDS: ALBUTEROL INHALER 200 PUFF/6.7 GM IH SCH (09:00)
[2024-08-10] MEDS: ALBUTEROL 2.5 MG/3 ML NEB SOL NEB PRN (09:15)
--- NOTE | 2024-08-10 11:52 | HP ---
Date of Admission: 08/08/2024 Chief Complaint: Cough, congestion, shortness of breath, and wheezing. History Of Present Illness: This is a 78-year-old pleasant female patient who saw me twice this week . First time she saw me was on 08/06/2024, so 2 days ago and she came back to see me at office today . The patient is having now 6 days history of fever, headache, cough, congestion, and when she saw m e on 08/06/2024, she was started on Augmentin and outpatient chest x-ray was ordered, which did not s how any pneumonia, so she was treated for acute bronchitis with this Augmentin. She is taking medica tion as prescribed, but today she called office and reported that she was having shortness of breath, not feeling good at all and she was asked to come see me and after I evaluated her, decision was mad e to admit her to the hospital. She is no longer having fever or chills, but now feeling weak, tired , has been having some diarrhea with Augmentin. Has some wheezing associated with shortness of breat h that started as of yesterday. She does not have good appetite, but she is coughing up some green-c olored mucus. After I evaluated her, arrangements were made to admit her to hospital directly with mimi silva of pneumonia. Allergies: TO CODEINE CAUSING NAUSEA AND VOMITING. Medications: Augmentin 875 mg 2 times a day, aspirin 81 mg daily, benzonatate 100 mg 3 times a day a s needed for cough, famotidine 20 mg 2 times a day, fluticasone nasal spray 1 spray each nostril 2 ti mes a day, gabapentin 800 mg twice a day, isosorbide mononitrate 30 mg daily, levothyroxine 125 mcg d aily, lisinopril 20 mg daily, metoprolol tartrate 50 mg half a tablet 2 times a day, ropinirole 2 mg 2 times a day. Review of Systems: Constitutional: As mentioned above. ENT: Nasal and sinus congestion. Respiratory: Significant for cough, congestion with expectoration, dyspnea and wheezing. Neurology: Chronic problem with tingling, numbness, and pain in both feet due to chemotherapy severa l years ago. All other systems reviewed and negative. Past Medical History: Significant for peripheral neuropathy, Neelam thyroiditis, hypothyroidism, impaired fasting glucose, hypertension, mixed hyperlipidemia, coronary artery disease, diverticulosis , and diffuse large B-cell type of lymphoma, which was treated with chemotherapy in the past. This w as several years ago. Past Surgical History: Tonsillectomy, coronary artery angioplasty with stent placement, cholecystect vikas, hysterectomy. Family History: Father , had stomach cancer. Mother , had coronary artery disease, congesti ve heart failure. Sister , had hypertension and lung cancer. Social History: Prior history of smoking, not at present time. Use of alcohol, occasional. Physical Examination: Vital Signs: Blood pressure 158/87, pulse 59, temperature 97.4, respiratory rate 18. Weight 175.4 p ounds, height 64 inches. General: Awake, alert, oriented, not in distress. HEENT: Head atraumatic, normocephalic. Conjunctivae nonerythematous. Sclerae white. Mouth, no thr ush or edema noted. Ears/Nose, no mass, lesion, discharge noted. Neck: Supple. No JVD, lymph nodes, bruit, thyromegaly noted. Lungs: Presence of crackles in lower 1/4 lung daily. There is wheezing in both lungs. Not using a ccessory muscles of respiration. Heart: Normal heart sounds, no murmur or gallop. Abdomen: Soft, bowel sounds normal. No guarding, rigidity, tenderness, mass, hepatosplenomegaly, dis tention, or bruit noted. Extremities: No leg edema. No calf tenderness. Skin: No rash, ulcer, cellulitis. Lymphatics: No lymph node enlargement in neck, supraclavicular, infraclavicular region. Neuro: No focal neurological deficit. Chest: Unremarkable. External Genitalia: Deferred. Rectal: Deferred. Laboratory Data: WBC 4.5, hemoglobin 13.8, platelets 158. Sodium 136, potassium 4.3, chloride 103, bicarb 29, BUN 13, creatinine 1.07, glucose 116. Lactic acid 1.2. Liver function tests are unremar kable. Chest x-ray today, no acute cardiopulmonary changes. Impression: 1. Pneumonia. 2. Peripheral neuropathy. 3. Hypothyroidism. 4. Impaired fasting glucose. 5. Coronary artery disease. 6. Mixed hyperlipidemia. 7. Hypertension. 8. Diverticulosis. Plan: Admit patient to hospital for further inpatient management of this problem. The patient is ap propriate for inpatient and is expected to spend 2 midnights in hospital. Clinically, patient is act ing like pneumonia and we will treat her for pneumonia with appropriate antibiotics per order. Also, give nebulizer treatment per order. We will get a CT scan of the chest without contrast. Azithromy joanne and ceftriaxone will be continued per order. Lovenox was ordered for DVT prophylaxis. For hyper tension, continue antihypertensive medication and we will make adjustment on blood pressure medicatio n as it becomes necessary depending on her blood pressure. For hypothyroidism, we will continue levo thyroxine and no need for further intervention. For impaired fasting glucose, no need for further in tervention. For hyperlipidemia, we will continue her statin therapy and need for further interventio n. For coronary artery disease, she is on isosorbide and aspirin and we will continue that. Total time spent 85 minutes including communication with the radiologist as her chest x-ray from 07/20 was not available in the hospital system, review of last office visit record from 08/06/2024, performing today's evaluation and management, and making arrangements for hospital admission. ROBBIE/MODL Voice ID: [id number]
[2024-08-11 05:07] VITALS: O2SAT 97
--- NOTE | 2024-08-11 06:43 | PN ---
Date of Progress Note: 08/10/2024 Subjective: Patient was seen this morning for followup. No new complaints or problems reported. Sh tomas was sitting at bedside, feeling a lot better, and looked lot better compared to yesterday. Objective: Vital Signs: Reviewed. HEENT Examination: Unremarkable. Lungs: Clear to auscultation except presence of rales in the lower lobe, unchanged from yesterday. Heart: Heart sounds normal. Abdomen: Soft. Bowel sounds normal. No guarding, rigidity, tenderness, distention. Extremities: No leg edema. Impression: 1. Pneumonia. 2. Hypertension. 3. Hyperlipidemia. Plan: The patient's blood pressure seems to be elevated. She does not check it at home and she does not have any symptoms from high blood pressure, so we really do not know if this has been going on f or some time or not, but I have encouraged her to check her blood pressure at home 3 times a day and bring those readings to the office, so we can make adjustment on her medication. Meanwhile, while in the hospital, we have her on usual home medications for blood pressure and on top of that I have add ed amlodipine 5 mg 2 times a day as of today and we have her taking clonidine 0.1 mg every 6 hours as needed for systolic blood pressure higher than 160. We will continue current antibiotic, steroids, which has provided significant improvement in last 24 hours and plan is to possibly discharge her to go home tomorrow. ROBBIE/MODL Voice ID: [id number] Report ID: [id number]
[2024-08-11 08:36] VITALS: BP 141/61; TEMP 98
--- NOTE | 2024-08-11 09:59 | RAD REPORT ---
EXAMINATION: US RENAL with DUPLEX CLINICAL INDICATION: Female, 78 years old. makenzie. TECHNIQUE: Real-time grayscale, and color flow images of the kidneys, with spectral Doppler sonograph ic images were obtained of the bilateral renal arteries using a linear transducer. COMPARISON: No prior exam. FINDINGS: AORTA: 93 cm/s RIGHT: Pelviectasis versus parapelvic small cyst. Small echogenic upper to midpole 6 mm focus, could represe nt parenchymal calcification versus a small calculus. Proximal renal artery: 84 cm/s Mid renal artery: 68 cm/s Distal renal artery: 70 cm/s Arcuate artery resistive index: 0.74 Renal/aortic ratio: 0.9 LEFT: Proximal renal artery: 68 cm/s Mid renal artery: 37 cm/s Distal renal artery: 71 cm/s Arcuate artery resistive index: 0.80 Renal/aortic ratio: 0.76 IMPRESSION: Elevated arcuate artery resistive indices bilaterally more so on the left, may suggest intrinsic jose l disease or renal artery stenosis. Small echogenic upper to midpole 6 mm focus, could represent parenchymal calcification versus a small calculus.
--- NOTE | 2024-08-11 11:18 | DS ---
Date of Discharge: 08/11/2024 Disposition: Discharged to go home. Physical Examination: HEENT Examination: Unremarkable. Lungs: Bilateral good equal air entry. No wheezing. Minimal left basal rales, much better than bef ore. Not using accessory muscles of respiration. Heart: Heart sounds normal. Abdomen: Soft. Bowel sounds normal. No guarding, rigidity, tenderness, distention. Extremities: No leg edema. Laboratory Data: WBC 4.50, hemoglobin 13.8, platelets 158. Sodium 136, potassium 4.3, chloride 103, bicarb 29, BUN 13, creatinine 1.07, glucose 116. Lactic acid 1.2. Liver function tests unremarkabl e. Chest x-ray no acute cardiopulmonary changes. CAT scan of the chest without contrast shows left lowe r lobe infiltrate. History: This is a 78-year-old pleasant female patient who was admitted to the hospital with cough, congestion, shortness of breath, and wheezing. Please see dictated H and P for more information. Af ter patient was evaluated in office, decision was made to admit her to the hospital due to lack of im provement with outpatient management. I was concerned about pneumonia, even though her outpatient est x-ray 2 days prior to admission was negative, and also after I admit her to hospital, repeat [facility] t x-ray on the day of admission was negative for pneumonia. On basis of clinical ground, I was suspe cting pneumonia, so we did a CAT scan of the chest, we did prove left lower lobe infiltrate. The pat ient was started on IV antibiotic, which was ceftriaxone and azithromycin, and as of day before yeste rd, I added IV steroid because of her bilateral wheezing and lot of chest congestion that she was h aving and that actually has provided significant relief 4 hours after we started IV Solu-Medrol 40 mg 2 times a day. She has shown significant improvement and today at about 48 hours after starting IV steroid, she is feeling significantly better and is medically stable for discharge. Final Diagnoses: 1. Pneumonia. 2. Peripheral neuropathy. 3. Hypothyroidism. 4. Hypertension. 5. Impaired fasting glucose. 6. Coronary artery disease. 7. Mixed hyperlipidemia. 8. Diverticulosis. Hospital Course: The patient's blood pressure has been extremely high during this hospitalization, a nd initially we started her on amlodipine, then p.r.n. clonidine was ordered. As of yesterday, we vega ve added amlodipine 5 mg 2 times a day on a scheduled basis. Her blood pressure is still around 160 systolic. Renal artery Doppler was done today, results pending. We will follow up on that on outpat ient basis. I have instructed the patient to check her blood pressure 3 times a day and bring those readings to the office when she comes to see me. Discharge Medications And Instructions: 1. Continue all prior home medication except change lisinopril 20 mg take 1 tablet by mouth 2 times a day. 2. Start following new medications. 3. Azithromycin 250 mg take 1 tablet by mouth daily for 5 days, take it with food. 4. Prednisone 10 mg take 3 tablets by mouth daily for 3 days, then 2 tablets by mouth daily for 3 day s, then 1 tablet by mouth daily for 3 days, then stop, take it with food. 5. Albuterol inhaler 2 puffs by mouth 3 times a day and the patient is using this inhaler in the hosp ital and she will take it home for home use. 6. Amlodipine 5 mg 2 times a day. 7. Follow up at my office next week on 08/14/2024. 8. Total time spent today 40 minutes. ROBBIE/MODL Voice ID: [id number] Report ID: [id number]
== END 2024-08-11 11:43 | disposition home or self-care (01) | DRG 195 ==
LOC: 2ND 11:26
PROVIDERS: ADMIT Internal Medicine; ATTEND Internal Medicine
DX: J18.9 Pneumonia, unspecified organism (principal); I10 Essential (primary) hypertension; E03.9 Hypothyroidism, unspecified; G62.9 Polyneuropathy, unspecified; E78.2 Mixed hyperlipidemia; I25.10 Atherosclerotic heart disease of native coronary artery without angina pectoris; K57.90 Diverticulosis of intestine, part unspecified, without perforation or abscess without bleeding; R73.01 Impaired fasting glucose; Z95.1 Presence of aortocoronary bypass graft; Z88.5 Allergy status to narcotic agent; Z95.5 Presence of coronary angioplasty implant and graft; Z79.82 Long term (current) use of aspirin; Z90.49 Acquired absence of other specified parts of digestive tract; Z79.890 Hormone replacement therapy; Z79.899 Other long term (current) drug therapy; Z87.891 Personal history of nicotine dependence
CPT/HCPCS: 36415; 71046; 71250; 76770; 80053; 83605; 83735; 85025; 94640; J0696; J1650; J2919; J7050; J7613